=== PATIENT | female | born 1945 | race Caucasian/White ===

== ENCOUNTER 2016-11-06 13:47 | Inpatient (IN) | payer OTHER ==
[~2016-11-06] VITALS: Ht 154.9 cm; Wt 51.7 kg
[~2016-11-06 13:47] MED LIST: BENTYL20 MG PO; HYDROCODONE-AP1 EAC6 PO; SENNA S TABLET1 EACH PO; TENORMIN25 MG PO; TRAZODONE HCL50 MG PO
[2016-11-06 13:48] VITALS: BP 148/59
[2016-11-06] MEDS ORDERED: CHILDREN'S ASPI81 M1 PO (13:51)
[2016-11-06 18:43] LABS: ABSOLUTE NEUTROPHILS 6.8 thou/uL (1.4-8.2); BASOPHILS 0.4 % (0.0-2.0); EOSINOPHILS 1.1 % (0.0-3.0); HEMOGLOBIN 13.5 gm/dL (12.0-15.0); LYMPHOCYTES 15.6 % (24.0-44.0); MANUAL DIFF NO; MCH 29.5 pg (26.0-34.0); MCHC 33.8 g/dL (28.0-37.0); MCV 87.5 fL (80.0-100.0); MONOCYTES 7.5 % (1.0-8.0); PLATELET COUNT 130 thou/uL (150-400); POLYS 75.4 % (36.0-66.0); RBC 4.57 mil/uL (4.20-5.00); RDW 12.9 % (10.5-14.5)
[2016-11-06 18:52] LABS: CREATININE 0.9 mg/dL (0.6-1.0); POTASSIUM 3.9 mmol/L (3.5-5.1)
[2016-11-06 19:33] VITALS: BP 117/94
[2016-11-07 03:29] VITALS: BP 118/64
[2016-11-07 09:00] VITALS: BP 118/93
[2016-11-07 16:40] VITALS: BP 125/56
[2016-11-07 20:21] VITALS: BP 131/61
[2016-11-08 05:27] VITALS: BP 100/51
[2016-11-08 07:02] VITALS: BP 121/55
[2016-11-08] MEDS ORDERED: HYDROCODON-ACE1 EAC7 PO (07:49)
[2016-11-08 16:19] VITALS: BP 141/59
[2016-11-08 19:29] VITALS: BP 149/66
[2016-11-09 04:18] VITALS: BP 97/68
[2016-11-09 08:00] VITALS: BP 131/65
[2016-11-09] MEDS ORDERED: MIRALAX17 GM PO (11:18)
[2016-11-09] MEDS ORDERED: MILK OF MA2400 MG/10 PO (11:19)
== END 2016-11-09 13:39 | DRG 536 ==
LOC: ER 13:47 → 4N 17:45 → EROBS 17:45 → 4N 22:45
PROVIDERS: Physician Assistant
DX: S32.435A Nondisplaced fracture of anterior column [iliopubic] of left acetabulum, initial encounter for closed fracture (principal); W11.XXXA Fall on and from ladder, initial encounter; Z85.3 Personal history of malignant neoplasm of breast; Z85.820 Personal history of malignant melanoma of skin; Z79.899 Other long term (current) drug therapy; Y93.89 Activity, other specified; Y92.89 Other specified places as the place of occurrence of the external cause; Y99.8 Other external cause status
CPT/HCPCS: 10091

== ENCOUNTER → 2018-11-15 | Outpatient (CLI) | payer OTHER ==
[~2018-11-15] MED LIST changes: +CHILDREN'S ASPI81 M1 PO; +HYDROCODON-ACE1 EAC7 PO; +MILK OF MA2400 MG/10 PO; +MIRALAX17 GM PO
== END ==
LOC: CAT 13:05
DX: Z13.6 Encounter for screening for cardiovascular disorders (principal); E78.00 Pure hypercholesterolemia, unspecified; I25.10 Atherosclerotic heart disease of native coronary artery without angina pectoris

== ENCOUNTER 2020-12-23 18:59 | Emergency (ER) | payer OTHER, MEDICARE ==
[~2020-12-23] VITALS: Ht 154.9 cm; Wt 51.3 kg
[2020-12-23] MEDS ORDERED: CEFDINIR300 MG PO (19:37)
[2020-12-23 21:07] LABS: ABSOLUTE NEUTROPHILS 4.1 thou/uL (1.4-8.2); BASOPHILS 1.2 % (0.0-2.0); EOSINOPHILS 4.4 % (0.0-3.0); HEMATOCRIT 40.5 % (37.0-47.0); HEMOGLOBIN 13.4 gm/dL (12.0-15.0); LYMPHOCYTES 22.4 % (24.0-44.0); MCH 29.3 pg (26.0-34.0); MCV 88.7 fL (80.0-100.0); MONOCYTES 11.4 % (1.0-8.0); PLATELET COUNT 221 thou/uL (150-400); POLYS 60.6 % (36.0-66.0); RBC 4.57 mil/uL (4.20-5.00); RDW 13.2 % (10.5-14.5); WBC 6.7 thou/uL (4.0-11.0)
[2020-12-23 21:24] LABS: CALCIUM 8.9 mg/dL (8.5-10.1); CREATININE 0.8 mg/dL (0.6-1.0); POTASSIUM 3.8 mmol/L (3.5-5.1)
[2020-12-23 21:29] LABS: ALBUMIN 3.7 g/dL (3.4-5.0); TOTAL BILIRUBIN 0.3 mg/dL (0.2-1.0); TOTAL PROTEIN 7.3 g/dL (6.4-8.2)
[2020-12-23] MEDS ORDERED: FLOMAX0.4 MG PO (21:39)
[2020-12-23 21:48] LABS: URINE BILIRUBIN NEGATIVE (Negative); URINE BLOOD 3+ (Negative); URINE CLARITY CLEAR; URINE COLOR YELLOW; URINE GLUCOSE-RANDOM* NEGATIVE (Negative); URINE KETONES TRACE (Negative); URINE NITRITE-REFLEX NEGATIVE (Negative); URINE PROTEIN (DIPSTICK) NEGATIVE (Negative); URINE SPECIFIC GRAVITY 1.015 (1.005-1.035); URINE UROBILINOGEN 0.2 E.U./dl (0.2-1.0)
[2020-12-23 21:53] LABS: URINE LEUKOCYTES-REFLEX 1+ (Negative)
[2020-12-23 22:53] LABS: BACTERIA-REFLEX 1-9 Few /HPF (None Seen); CASTS None Seen /LPF (None Seen); CRYSTALS None Seen /LPF (None Seen); MUCUS 0-3 Light strn/LPF (None Seen); SQUAMOUS 0-3 Few /LPF (0-3); URINE RBC >20 Many /HPF (NONE SEEN); URINE WBC-REFLEX 6-15 Few /HPF (0-5)
[2020-12-23 23:05] VITALS: BP 149/62
== END 2020-12-23 23:07 | disposition home or self-care (01) ==
LOC: ER 18:59
PROVIDERS: Physician Assistant; Student in an Organized Health Care Education/Training Program
DX: N20.0 Calculus of kidney (principal); Z90.49 Acquired absence of other specified parts of digestive tract; Z79.899 Other long term (current) drug therapy

== ENCOUNTER 2021-01-02 18:57 | Inpatient (IN) | payer OTHER, MEDICARE ==
[~2021-01-02] VITALS: Ht 154.9 cm; Wt 53.9 kg
[~2021-01-02 18:57] MED LIST changes: +CEFDINIR300 MG PO; +FLOMAX0.4 MG PO
[2021-01-02 19:08] VITALS: BP 142/63
[2021-01-02] MEDS ORDERED: OXYBUTYNIN CHLOR5 M1 PO (19:34)
[2021-01-02] MEDS ORDERED: TRAZODONE HCL50 MG PO (19:35)
[2021-01-02] MEDS ORDERED: AMOX TR-K CLV1 EAC4 PO (19:35)
[2021-01-02 19:40] LABS: HEMATOCRIT 37.2 % (37.0-47.0); HEMOGLOBIN 12.3 gm/dL (12.0-15.0); MCHC 33.1 g/dL (28.0-37.0); MCV 87.8 fL (80.0-100.0); RBC 4.24 mil/uL (4.20-5.00); WBC 12.6 thou/uL (4.0-11.0)
[2021-01-02 19:58] LABS: CALCIUM 9.3 mg/dL (8.5-10.1); CREATININE 1.2 mg/dL (0.6-1.0); POTASSIUM 3.5 mmol/L (3.5-5.1)
[2021-01-02 20:02] LABS: URINE BILIRUBIN NEGATIVE (Negative); URINE BLOOD 2+ (Negative); URINE CLARITY CLEAR; URINE COLOR YELLOW; URINE GLUCOSE-RANDOM* NEGATIVE (Negative); URINE KETONES TRACE (Negative); URINE LEUKOCYTES-REFLEX NEGATIVE (Negative); URINE NITRITE-REFLEX NEGATIVE (Negative); URINE PROTEIN (DIPSTICK) NEGATIVE (Negative); URINE SPECIFIC GRAVITY >= 1.030 (1.005-1.035); URINE UROBILINOGEN 0.2 E.U./dl (0.2-1.0)
[2021-01-02 20:03] LABS: ALBUMIN 3.8 g/dL (3.4-5.0); TOTAL BILIRUBIN 0.4 mg/dL (0.2-1.0)
[2021-01-02 20:15] LABS: CASTS None Seen /LPF (None Seen); SQUAMOUS 0-3 Few /LPF (0-3); URINE RBC 3-10 Few /HPF (NONE SEEN); URINE WBC-REFLEX None Seen /HPF (0-5)
[2021-01-02 20:16] LABS: BACTERIA-REFLEX None Seen /HPF (None Seen); CALCIUM OXALATE >10 Many /LPF (None Seen)
[2021-01-03] VITALS (8 sets, daily range): BP systolic 106–141; BP diastolic 56–75
--- NOTE | 2021-01-03 06:31 | NUR ---
PT TRANSFERED FROM THE ED AT 0240, REPPORTS NO PAIN OR DISCOMFORT UPON ADMISION, A & OX4, CHIEF COMPLAIN, LEFT FLANK PAIN, PRN PAIN MEDICATION ADMITTED FROM THE ED. CHERELLE ROBERTS WELL, WILL CONTINUE TO MONITOR.
--- NOTE | 2021-01-03 10:03 | NUR ---
Assumed care of pt at 0700. Pt a&ox4. No c/o flank pain this am. IVF infusing. Patient taken to pre-op for procedure. Awaiting report for patient to return to room.
[2021-01-03] MEDS ORDERED: CEFDINIR300 MG PO (13:15)
--- NOTE | 2021-01-05 12:07 | PATH ---
[facility] [place] [address] PATHOLOGY RPT PROCEDURE Name: LIZETH KRAFT Rashmi Room #: 439-P [facility] IN M.R.#: [id number] Admission: 01/02/21 Date of : 43 Discharge: 01/03/21 Report #: [id number] Path Case #: [id number] [facility] Accession Number: [id number] . 01 Material submitted: . ureter - LEFT URETERAL STONE. Modifiers: left . 01 Clinical history: . LEFT URETERAL STONE . 02 Diagnosis: Left ureteral stone: - Consistent with calculus. - The specimen is sent out for further processing. - Report pending outside analysis with results to follow in an addendum. [facility] 01/03/2021 1513 Local . 02 Electronically signed: . Felicia Davis MD, Pathologist NPI- [id number] . 01 Gross description: . The specimen is received fresh, labeled "Lizeth Kraft, left ureteral stone". Received is a single wheeler-brown calculus measuring 0.3 cm in maximum dimensions. The specimen is forwarded to sendouts for further processing. ([facility]; 01/03/2021) QAC/QAC 01/03/2021 1511 Local . 02 Pathologist provided ICD-10: N20.1 . 02 CPT . 926132 Specimen Comment: A courtesy copy of this report has been sent to [phone] Specimen Comment: Report sent to Specimen Comment: A duplicate report has been generated due to demographic updates. Performed at: [address] [facility], [place] [id number] MD Shay Gallo MD Phone: [phone] Performed at: [address] [id number] MD Felicia Davis MD Phone: [phone]
== END 2021-01-03 16:57 | disposition home or self-care (01) | DRG 660 ==
LOC: ER 18:57 → EROBS 20:56 → 4S 20:56
PROVIDERS: Nurse Practitioner Family; ADMIT Hospitalist; ATTEND Hospitalist
DX: N20.2 Calculus of kidney with calculus of ureter (principal); N17.9 Acute kidney failure, unspecified; Z20.822 Contact with and (suspected) exposure to COVID-19; Z85.3 Personal history of malignant neoplasm of breast; Z90.49 Acquired absence of other specified parts of digestive tract; Z87.442 Personal history of urinary calculi; Z87.81 Personal history of (healed) traumatic fracture; Z92.3 Personal history of irradiation
CPT/HCPCS: 50010; 50101; 50164; 51767; 53331; 56674; 56815; 57160; 58565; 58732; 62110; 62900; 70005

== ENCOUNTER 2021-01-05 00:20 | Inpatient (IN) | payer OTHER, MEDICARE ==
[~2021-01-05] VITALS: Ht 157.5 cm; Wt 49.4 kg
[2021-01-05] VITALS (7 sets, daily range): BP systolic 101–155; BP diastolic 43–77
[~2021-01-05 00:20] MED LIST changes: +AMOX TR-K CLV1 EAC4 PO; +OXYBUTYNIN CHLOR5 M1 PO
[2021-01-05 00:58] LABS: URINE BILIRUBIN 1+ (Negative); URINE BLOOD 3+ (Negative); URINE CLARITY SL CLOUDY; URINE COLOR RED; URINE GLUCOSE-RANDOM* TRACE (Negative); URINE KETONES NEGATIVE (Negative); URINE PROTEIN (DIPSTICK) 3+ (Negative); URINE SPECIFIC GRAVITY 1.015 (1.005-1.035); URINE UROBILINOGEN 0.2 E.U./dl (0.2-1.0)
[2021-01-05 01:30] LABS: URINE LEUKOCYTES-REFLEX 1+ (Negative); URINE NITRITE-REFLEX POSITIVE (Negative)
[2021-01-05 01:34] LABS: BACTERIA-REFLEX 1-9 Few /HPF (None Seen); SQUAMOUS 0-3 Few /LPF (0-3); URINE RBC >20 Many /HPF (NONE SEEN); URINE WBC-REFLEX 6-15 Few /HPF (0-5)
[2021-01-05 01:34] LABS: ABSOLUTE NEUTROPHILS 4.7 thou/uL (1.4-8.2); BASOPHILS 0.5 % (0.0-2.0); EOSINOPHILS 2.5 % (0.0-3.0); HEMATOCRIT 34.6 % (37.0-47.0); HEMOGLOBIN 11.4 gm/dL (12.0-15.0); LYMPHOCYTES 27.8 % (24.0-44.0); MCH 29.3 pg (26.0-34.0); MCHC 33.1 g/dL (28.0-37.0); MCV 88.6 fL (80.0-100.0); MONOCYTES 10.7 % (1.0-8.0); PLATELET COUNT 187 thou/uL (150-400); POLYS 58.5 % (36.0-66.0); RDW 13.2 % (10.5-14.5)
[2021-01-05 01:35] LABS: CALCIUM 8.5 mg/dL (8.5-10.1); CREATININE 0.8 mg/dL (0.6-1.0); POTASSIUM 3.6 mmol/L (3.5-5.1)
[2021-01-05 01:35] LABS: CASTS None Seen /LPF (None Seen); CRYSTALS None Seen /LPF (None Seen); MUCUS 0-3 Light strn/LPF (None Seen)
--- NOTE | 2021-01-05 15:47 | NUR ---
PT ADMITTED RELATED TO RENAL STONE AND ANXIETY. CM REVIEWED CHART AND SPOKE WITH CARE TEAM. CM MET WITH PT AT BEDSIDE THIS DAY. PT APPEARED TO BE A&O X4. CM ROLE INTRODUCED. PT INDICATED SHE RESIDES IN A HOUSE WITH HER BOYFRIEND WITH NO STEPS TO ENTER A FULL FLIGHT TO BASEMENT. PT INDICATED SHE HAD BEEN INDEPEDNENT WITH GAIT AND ADLS [employer]. PT INDICATED SHE PLANS TO RETURN HOME ONCE MEDICALLY STABLE. UROLOGY FOLLOWING. CM FOLLOWING REGARDING DC PLANNING.
--- NOTE | 2021-01-05 16:56 | NUR ---
CARE TEAM INDICATED THAT PT IS MEDICALLY STABLE TO DC HOME THIS DAY. PT TO DC HOME TO SELF CARE. NO OTHER CM INTERVENTION INDICATED. CASE CLOSED.
== END 2021-01-05 18:02 | disposition home or self-care (01) | DRG 921 ==
LOC: ER 00:20 → EROBS 02:21 → 4W 02:21
PROVIDERS: Emergency Medicine; ADMIT Family Medicine; ATTEND Family Medicine
DX: N99.820 Postprocedural hemorrhage of a genitourinary system organ or structure following a genitourinary system procedure (principal); R31.0 Gross hematuria; N20.0 Calculus of kidney; F41.9 Anxiety disorder, unspecified; Z20.822 Contact with and (suspected) exposure to COVID-19; R39.15 Urgency of urination; R35.0 Frequency of micturition; Z85.3 Personal history of malignant neoplasm of breast; Z85.89 Personal history of malignant neoplasm of other organs and systems; Z90.49 Acquired absence of other specified parts of digestive tract; Z87.442 Personal history of urinary calculi
CPT/HCPCS: 10040

== ENCOUNTER → 2021-01-19 | Outpatient (CLI) | payer OTHER, MEDICARE | LOC: MRI 09:53 | PROVIDERS: ATTEND Family Medicine | DX: I67.82 Cerebral ischemia (principal); R42 Dizziness and giddiness; R26.89 Other abnormalities of gait and mobility; W19.XXXA Unspecified fall, initial encounter ==